=== PATIENT | female | born 1965 | race Caucasian/White ===

== ENCOUNTER 2021-08-22 20:16 | Emergency (ER) | payer MEDICARE, MEDICAID ==
[~2021-08-22] VITALS: Ht 160 cm; Wt 54.0 kg
[2021-08-22] MEDS ORDERED: SODIUM CHLORIDE 0.9% 1,000 ML IV ONE (20:45)
[2021-08-22] MEDS ORDERED: HALOPERIDOL LACTATE 5MG/ML VIAL IM ONE (20:45)
[2021-08-23 00:17] LABS: BASOPHILS % 0.9 % (0.0-2.0); EOSINOPHILS % 0.1 % (0.0-5.0); HEMATOCRIT. 36.8 % (36.0-48.0); HEMOGLOBIN. 12.5 g/dL (12.0-16.0); MEAN CORPUSCULAR HEMOGLOBIN 30.2 pg (28.0-32.0); MEAN PLATELET VOLUME 9.7 fl (7.4-10.4); MONOCYTES % 3.2 % (2.0-8.0); NEUTROPHILS % 83.8 % (40.0-76.0); PLATELET 254 x1000/uL (130-400); RED BLOOD CELL COUNT 4.14 mill/uL (4.2-5.4); RED CELL DISTRIBUTION WIDTH 13.5 % (11.6-14.6)
[2021-08-23 00:24] LABS: CHLORIDE 104 mEq/L (98-107)
[2021-08-23 00:31] LABS: BETA HYDROXYBUTYRATE 0.3 mMol/L (0.0-0.3)
[2021-08-23 03:38] LABS: CLARITY URINE CLEAR (CLEAR); COLOR URINE YELLOW (YELLOW); KETONES URINE 4+ (NEGATIVE); LEUKOCYTE ESTERASE URINE NEGATIVE (NEGATIVE); NITRITE URINE NEGATIVE (NEGATIVE); OCCULT BLOOD URINE TRACE (NEGATIVE); PH URINE 6.5 (4.5-8.0); PROTEIN URINE TRACE (NEGATIVE); SPECIFIC GRAVITY URINE 1.031 (1.005-1.030); UROBILINOGEN URINE 0.2 E.U./dL (0.2-1.0)
[2021-08-23] MEDS ORDERED: SODIUM CHLORIDE 0.9% 1,000 ML IV ONE (04:00)
[2021-08-23] MEDS ORDERED: METO5TAB86 MT (04:17)
[2021-08-23 05:30] VITALS: BP 113/70
== END 2021-08-23 05:45 | disposition home or self-care (01) ==
LOC: ER 20:16
DX: F10.129 Alcohol abuse with intoxication, unspecified (principal); E11.65 Type 2 diabetes mellitus with hyperglycemia; F13.10 Sedative, hypnotic or anxiolytic abuse, uncomplicated; Y90.9 Presence of alcohol in blood, level not specified
CPT/HCPCS: 36415; 80053; 81003; 82010; 82962; 83605; 83690; 84484; 85025; 96360; 96361; 96372; 99285; J1630; J7030